=== PATIENT | male | born 1990 | race Caucasian/White ===

== ENCOUNTER 2020-09-08 17:58 | Emergency (ER) | payer BC, OTHER, SELFPAY ==
[2020-09-08 18:05] VITALS: BP 160/101; PULSE 84; RESP 19; TEMP 36.4; O2SAT 97
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
[2020-09-08] MEDS: Acetaminophen 325 MG TAB 650 MG PO (18:39)
[2020-09-10 14:05] LABS: COVID-19 RT-PCR UVMMC Result Positive (Negative)
--- NOTE | 2020-09-10 14:57 | NUR.NOTE ---
Nursing Note: Attempted to call pt on cell phone number on file to notify of positive covid test. Received answering machine, left message to return call to [facility] ER for results. No PCP listed on file, will have care management referral placed to help establish PCP.
== END 2020-09-08 18:45 | disposition home or self-care (01) ==
PROVIDERS: Emergency Provider Registered Nurse Emergency
DX: U07.1 COVID-19 (principal); R05 Cough; M79.10 Myalgia, unspecified site
CPT/HCPCS: 99282; U0003; 99283

== ENCOUNTER 2021-07-18 14:00 | Emergency (ER) | payer BC, SELFPAY ==
[2021-07-18 14:04] VITALS: BP 147/85; PULSE 111; RESP 14; TEMP 36.5; O2SAT 98
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
--- NOTE | 2021-07-18 15:43 | DI.RAD_ITS ---
Exam(s) XR PORTABLE CHEST AP EXAM: XR PORTABLE CHEST AP CLINICAL HISTORY: cough TECHNIQUE: COMPARISON: No exams were available for comparison FINDINGS: Single upright AP view at 1525 hours. Cardiac size is within normal limits. The lungs are predominantly clear, there is question slight pa tchy infiltrate at the right lung base. Possibility of very early patchy consolidation is raised No pleural effusion on this frontal view. IMPRESSION: Question minimal right basilar infiltrate. Follow-up films may be obtained if clinically appropriate . RADIATION DOSE DELIVERED: Total DLP
[2021-07-19 12:33] LABS: COVID-19 RT-PCR UVMMC Result Negative (Negative)
== END 2021-07-18 16:01 | disposition home or self-care (01) ==
PROVIDERS: Emergency Provider Physician Assistant
DX: R51.9 Headache, unspecified (principal); Z04.1 Encounter for examination and observation following transport accident; J18.9 Pneumonia, unspecified organism; R05.1 Acute cough; Z20.822 Contact with and (suspected) exposure to COVID-19; J45.909 Unspecified asthma, uncomplicated
CPT/HCPCS: 99283; U0003; 71045

== ENCOUNTER 2025-05-31 04:30 | Emergency (ER) | payer OTHER, SELFPAY ==
--- NOTE | 2025-05-31 04:30 | DI.CT_ITS ---
Exam(s) CT HEAD WO EXAM: CT HEAD WO CLINICAL HISTORY: head injury. TECHNIQUE: Imaging Protocol: Axial computed tomography images with coronal and sagittal reformatted images were created and reviewed COMPARISON: No exams were available for comparison FINDINGS: Ventricles and Extra axial spaces: Normal in size and morphology for the patient's age. Hemorrhage: None. Cerebral parenchyma: There is no evidence of an acute territorial infarct or mass effect. Midline shift: None. Brainstem/Cerebellum: Normal. Calvarium: Normal. Visualized Paranasal sinuses/Mastoids: Clear. Soft Tissues: Question of mild soft tissue swelling over the posterior left parietal scalp which may represent a small hematoma. IMPRESSION: 1. No acute intracranial process. 2. The preliminary [facility] report was reviewed. RADIATION DOSE DELIVERED: 862.39mGy.cm Total DLP DATA REPOSITORY: All CT scans at this facility are submitted to the National Radiology Data Registry (NRDR) Dose Index Registry (DIR) with the [employer] (A[employer]). RADIATION OPTIMIZATION: All CT scans at this facility use at least one of these dose optimization techniques: automated exposure control; mA and/or kV adjustment per patient size (includes targeted exams where dose is matched to clinical indication); or iterative reconstruction.
[2025-05-31 04:33] VITALS: BP 156/103; PULSE 86; RESP 18; TEMP 36.9; O2SAT 96
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
== END 2025-05-31 06:09 | disposition home or self-care (01) ==
PROVIDERS: Emergency Provider Student in an Organized Health Care Education/Training Program
DX: S09.8XXA Other specified injuries of head, initial encounter (principal); T65.891A Toxic effect of other specified substances, accidental (unintentional), initial encounter; R03.0 Elevated blood-pressure reading, without diagnosis of hypertension; F17.290 Nicotine dependence, other tobacco product, uncomplicated; W22.01XA Walked into wall, initial encounter; Y93.89 Activity, other specified; Y92.143 Cell of prison as the place of occurrence of the external cause; Y99.0 Civilian activity done for income or pay
CPT/HCPCS: 99284; 70450